=== PATIENT | female | born 1985 | race Caucasian/White ===

== ENCOUNTER 2019-12-15 10:22 | Inpatient (IN) ==
[2019-12-15] MEDS ORDERED: PENICILLIN G POTASSIUM 3 MU in DEXTROSE 5% 100 ML IV PRN (12:09)
[2019-12-15] MEDS ORDERED: OXYTOCIN 30 UNITS/500 ML BAG IV PRN ×2 (12:09→18:09)
[2019-12-15] MEDS: LACTATED RINGER'S 1,000 ML IV PRN ×2 (12:24→16:47)
--- NOTE | 2019-12-15 12:26 | History & Physical Report ---
Date of Service December 15, 2019 Assessment & Plan (1) Supervision of normal intrauterine in primigravida: (2) Advanced maternal age (AMA) in : (3) Normal labor: (4) Group beta Strep positive: admit, iv, labs. wants epidural for pain mgmt. begin pcn for gbs pos. arom when able. fhts categ 1. pt and partner deny ?s or concerns. History of Present Illness Chief Complaint: regular ctx. Primary Care Provider: Kenna Kim MD 34yo at 39+wks clementine presents to L&D with above cc. She had called noting q3min apart ctx for 30min and wanted to come in for labor check. She had been /-2 in office for her routine visit. On arrival in L&D was 2-/-2 per nurse. Advised to walk, fhts were categ 1 per nurse. No rom or vb. +FM PNC c/b 1. AMA, was getting nsts 2. GBS pos--trt in labor PNL rh pos, ri, gbs pos OBH: g1 GYNH: nl paps, no stds. Allergies Allergy/AdvReac Type Severity Reaction Status Date / Time No Known Allergies Allergy Verified 12/14/19 10:04 Home Medications Home Medications Medication Instructions Recorded Confirmed Type PNV cmb#95-ferrous fumarate-FA 1 tab PO DAILY 04/25/19 12/14/19 History [] diphenhydramine HCl PO 11/06/19 12/14/19 History ferrous sulfate PO 11/06/19 12/14/19 History pyridoxine (vitamin B6) PO 11/06/19 12/14/19 History acyclovir 800 mg tablet 800 mg PO 5XD 7 Days #35 tab 11/23/19 12/14/19 Rx Patient History Medical History (Updated 12/15/19 @ 12:26 by Marguerite Diamond MD, FACOG) H/O bladder infections Hx of migraines Varicella Surgical History (Updated 12/15/19 @ 12:22 by Marguerite Diamond MD, FACOG) [place] teeth removed Family History (Updated 11/23/19 @ 15:10 by Esther Porter MA) Brother Depression Sister Depression Mother Dyslipidemia Grandmother (Maternal) Dyslipidemia Hypertension Father Renal calculus, left Family/Other Breast cancer Other No pertinent family history Denies family history of Ovarian cancer Prostate cancer Myocardial infarction Colorectal cancer Social History (Updated 11/23/19 @ 15:11 by Esther Porter MA) Preferred Language: Sudanese Beliefs That Will Affect Care: None marital status: marital status details: Ritesh Burrows (36) [phone] Current Living Situation: Spouse Current Living Situation Comment: lives with spouse, 1 turtle current occupational status: employed current occupation: school psychologist- [employer] Other Information That Helps Us Care for You: No Feels Safe at Home: Yes Safety Concerns: Feels Safe At This Time Smoking Status: Never smoker Hx Alcohol Use: No Hx Substance Use: No Childhood Exposure to Second-Hand Smoke: No Dental Care, Regularly: Yes Physical Activity Frequency: 3-4 Times per Week Seatbelt Use: always Sunscreen Use: Yes Review of Systems per hpi Physical Exam Constitutional: WD/WN, vitals as above Respiratory: normal respiratory effort, lungs clear to auscultation Cardiovascular: Rate/Rhythm: regular rate and regular rhythm Gastrointestinal (Abdomen): Percussion/Palpation: abdomen soft (gravid); abdomen nontender soft gravid nt Musculoskeletal: no edema Neurologic: grossly normal Psychiatric: A+Ox3, euthymic affect Genitourinary: OB Exam Abdomen: + estimated weight (7-8#) Manual OB Exam: + cervical dilation (4), + cervical effacement 100% and + station 0 OB Exam Monitor Tracing: + external FHT monitor used (140), + external uterine monitor used (q2), + category I and + normal FHT variability Results & Data ([facility]) Vital Signs (Past 12 Hours) Vital Signs Temp Pulse Resp BP 12/15/19 10:25 98.6 F 54 L 22 111/70 Code Status & VTE Plan VTE Prophylaxis Plan VTE Prophylaxis will be ordered: No Coding Level of Care Code None Diagnoses Supervision of normal intrauterine in primigravida Z34.00 Advanced maternal age (AMA) in Normal labor O80; Z37.9 Group beta Strep positive B95.1
[2019-12-15] MEDS ORDERED: PENICILLIN G POTASSIUM 6 MU in DEXTROSE 5% 250 ML IV ONE (12:30)
[2019-12-15] MEDS ORDERED: ePHEDrine sulfate 50 MG/ML AMP ONE (12:31)
[2019-12-15] MEDS ORDERED: BUPIVACAINE 0.25% 30 ML VIAL ONE (12:31)
[2019-12-15 12:32] LABS: Hematocrit (blood only) 36.7 % (37-47); Hemoglobin 12.8 g/dL (12.0-16.0); Mean Corpuscular Hemoglobin 32.9 pg (25-34); Mean Corpuscular Volume 94.3 fL (80-100); Mean Platelet Volume 12.3 fL (7.4-10.4); Platelet Count 157 K/uL (130-400); RDW Coefficient of Variation 13.1 % (11.5-14.5); RDW Standard Deviation 45.3 fL (36.4-46.3); Red Blood Count 3.89 M/uL (4.2-5.4); White Blood Count 14.21 K/uL (4.8-10.8)
[2019-12-15] MEDS ORDERED: fentaNYL 2MCG/ML ROPIV 1.25MG/ML 100 ML BAG EPI ONE (12:32)
[2019-12-15] MEDS ORDERED: fentaNYL citrate 100 MCG/2 ML VIAL ONE (12:32)
[2019-12-15 12:47] LABS: Mean Corpuscular Hgb Conc 34.9 g/dL (32-36)
--- NOTE | 2019-12-15 13:19 | Anesthesiology Consultation ---
Date of Service December 15, 2019 Assessment & Plan (1) Encounter for pre-operative examination: History Height/Weight Height: 5 ft 5 in Weight: 66.678 kg Allergies Allergy/AdvReac Type Severity Reaction Status Date / Time No Known Allergies Allergy Verified 12/15/19 12:59 Medications Home Medications Medication Instructions Recorded Confirmed Last Taken ferrous sulfate [iron] 325 mg PO DAILY 12/15/19 12/15/19 Unknown vit-iron fum-folic ac 1 tab PO DAILY 12/15/19 12/15/19 Unknown [ Vitamin] Active Medications Generic Name Dose Route Start Last Admin Trade Name Freq PRN Reason Stop Dose Admin Lactated Ringer's 1,000 mls @ 125 mls/hr 12/15/19 12:09 12/15/19 13:09 Lr IV 12/17/19 12:08 0 mls/hr .Q8H PRN Infusion L&D Protocol Protocol Penicillin G Potassium 6 mu/ 262 mls @ 262 mls/hr 12/15/19 12:30 12/15/19 13: 09 Dextrose IV 12/15/19 13:29 262 mls/hr TODAY@1230 ONE Administration Past Medical History Medical History H/O bladder infections Hx of migraines Varicella Past Family History Family History Brother Depression Sister Depression Mother Dyslipidemia Grandmother (Maternal) Dyslipidemia Hypertension Father Renal calculus, left Family/Other Breast cancer Other No pertinent family history Denies family history of Ovarian cancer Prostate cancer Myocardial infarction Colorectal cancer Past Surgical History Surgical History [place] teeth removed Social History Smoking Status: Never smoker Hx Alcohol Use: No Hx Substance Use: No substance use type: does not use Physical Exam Vital Signs Last Vital Signs Temp 37.0 C 12/15/19 10:25 Pulse 54 L 12/15/19 10:25 Resp 22 12/15/19 10:25 BP 111/70 12/15/19 10:25 Testing Laboratory Results 12/15/19 12:22
[2019-12-15] MEDS ORDERED: ePHEDrine sulfate 50 MG/ML AMP IV PRN (14:00)
[2019-12-15] MEDS ORDERED: NALOXONE HCL 0.4 MG/1 ML VIAL/CARP IV PRN (14:00)
[2019-12-15] MEDS ORDERED: DiphenhydrAMINE HCL 50 MG/ML VIAL IV PRN (14:00)
[2019-12-15] MEDS ORDERED: ONDANSETRON INJ 2 MG/ML 2 ML VIAL IV PRN (14:00)
[2019-12-15] MEDS ORDERED: NALOXONE HCL 1 MG in SODIUM CHLORIDE 0.9% 1000ML 1,000 ML IV PRN (14:00)
[2019-12-15] MEDS ORDERED: fentaNYL 2MCG/ML ROPIV 1.25MG/ML 100 ML BAG EPI PRN (14:00)
[2019-12-15] MEDS ORDERED: ONDANSETRON INJ 2 MG/ML 2 ML VIAL ONE (14:03)
[2019-12-15] MEDS ORDERED: HYDROCORTISONE ACETATE 25 MG SUPP PR PRN (18:09)
[2019-12-15] MEDS ORDERED: BENZOCAINE 20% AER SPR 82.5 GM CAN EXT PRN (18:09)
[2019-12-15] MEDS ORDERED: SUPERCREAM 0.870% 15 GM JAR EXT PRN (18:09)
[2019-12-15] MEDS ORDERED: ACETAMINOPHEN 325 MG TAB PO PRN (18:09)
[2019-12-15] MEDS ORDERED: OXYCODONE/ACETAMINOPHEN 5mg/325mg TAB PO PRN (18:09)
--- NOTE | 2019-12-15 18:11 | Delivery Summary ---
Vaginal Delivery Summary Date of Service December 15, 2019 The patient dilated to complete and pushed to deliver a viable male Apgars 9 and 9 via over 2nd degree perineal laceration. Mouth and nose bulb suctioned at perineum. Shoulders and body delivered with ease. Infant was vigorous and crying at . Cord clamped at 30 seconds of life and to maternal abdomen where the cord was then doubly clamped and cut. Placenta delivered spontaneously and intact, three-vessel cord. Hemostasis achieved with dilute pitocin and uterine massage. Laceration repaired in usual fashion with 3- 0 vicryl after 1% local lidocaine anesthesia. Cervix and sulci intact. EBL 300 cc. Mother and baby stable recovery.
[2019-12-15] MEDS ORDERED: OXYTOCIN 20 UNITS in LACTATED RINGER'S 1,000 ML IV SCH (18:15)
[2019-12-15] MEDS ORDERED: DIPHTHERIA/TETANUS/PERTUSSIS 0.5 ML SYR/VIAL IM ONE (18:30)
--- NOTE | 2019-12-15 18:59 | Anesthesia Procedure Note ---
Date of Service December 15, 2019 Anesthesia Post Epidural Note Vital Signs Vital Signs: Temp Pulse Resp BP Pulse Ox 36.5 C 60 18 90/52 L 100 12/15/19 16:23 12/15/19 18:54 12/15/19 16:23 12/15/19 18:54 12/15/19 18:04 Notes Mental Status: alert / awake / arousable and participated in evaluation Patient Amnestic to Procedure: Yes Nausea / Vomiting: adequately controlled Pain: adequately controlled Airway Patency, RR, SpO2: stable & adequate BP & HR: stable & adequate Hydration State: stable & adequate Neuraxial Anesthesia: was administered and sensory block is resolving Anesthetic Complications: no major complications apparent and Pt Satisfied with anesthetic care Epidural: Removed without complications and With tip intact
[2019-12-15] MEDS: DOCUSATE SODIUM 100 MG CAP PO SCH (20:05)
[2019-12-15] MEDS: IBUPROFEN 600 MG TAB PO PRN (20:05)
[2019-12-16] MEDS: IBUPROFEN 600 MG TAB PO PRN ×4 (06:26→22:38)
[2019-12-16] MEDS: DOCUSATE SODIUM 100 MG CAP PO SCH ×2 (08:35→20:32)
--- NOTE | 2019-12-16 08:47 | Obstetrical Progress Note ---
Date of Service December 16, 2019 Assessment & Plan (1) examination following vaginal delivery: stable, routine care. , rubella immune Subjective Ambulation: ambulating normally Voiding: no voiding problems Diet Tolerance:: regular diet Lochia:: Small Feeding Type:: breast feeding bottom sore Physical Exam Constitutional WD/WN, vitals as above Respiratory normal respiratory effort, lungs clear to auscultation Cardiovascular Rate/Rhythm: regular rate and regular rhythm Gastrointestinal (Abdomen) Inspection/Auscultation: abdomen normal to inspection Percussion/Palpation: abdomen soft Fundus firm 2cm down Musculoskeletal nt calves no edema Neurologic grossly normal Psychiatric A+Ox3, euthymic affect Results & Data ([facility]) Vital Signs (Past 12 Hours) Vital Signs Temp Pulse Resp BP Pulse Ox 12/16/19 07:20 98.1 F 51 L 18 96/62 L 97 12/16/19 04:12 98.1 F 54 L 16 92/57 L 12/16/19 00:00 98.1 F 68 16 92/54 L
[2019-12-17] MEDS: IBUPROFEN 600 MG TAB PO PRN ×2 (05:00→15:06)
--- NOTE | 2019-12-17 06:09 | Obstetrical Progress Note ---
Date of Service <Juan Antonio Pearson MD - Last Filed: 12/17/19 07:03> December 17, 2019 Assessment & Plan <Juan Antonio Pearson MD - Last Filed: 12/17/19 07:03> (1) Normal labor: - Feels well today. Eating well, voiding well, ambulating well. - Pain well controlled with analgesics. - Routine care - After discharge will have 6 week followup. Subjective <Juan Antonio Pearson MD - Last Filed: 12/17/19 07:03> Emily is a 34 y/o female ; PPD #2 following spontaneous vaginal delivery at 39+ weeks; doing well this morning; light abdominal cramping & 5/10 pain well managed on analgesics; voiding well; tolerating meals overnight and able to ambulate some; some persistent lochia with some improvement this morning. Review of Systems Constitutional: denies fever, chills, sweat, headache Respiratory: denies shortness of breath, difficulty breathing Cardiac: denies chest pain, palpitations, chest pressure Breast: denies breast pain : denies dysuria Physical Exam <Juan Antonio Pearson MD - Last Filed: 12/17/19 07:03> General: Alert, oriented. No acute distress. Cardiac: Regular rate and rhythm, no murmurs/rubs/gallops. Respiratory: Clear to auscultation bilaterally a/p, no wheezes/rales/rhonchi. No increased work of breathing. Symmetrical chest rise. No respiratory distress. Abdomen: Soft, nontender, nondistended. Bowel sounds present. Uterus: Uterine fundus firm, palpable 2cm below umbilicus. Lower Extremities: No lower extremity edema or swelling. No deep calf pain. Ravi's negative bilaterally. Results & Data <Juan Antonio Pearson MD - Last Filed: 12/17/19 07:03> Vital Signs (Past 12 Hours) Vital Signs Temp Pulse Resp BP 12/17/19 00:00 37.0 C 70 18 96/56 L 12/16/19 19:30 36.7 C 71 18 97/61 L <Marguerite Diamond MD, FACOG - Last Filed: 12/17/19 07:45> Co-Signing Physician Notes Resident Physician Supervision Note: I was present with Dr. Cole during the history and exam. I discussed the case with the resident and agree with the findings and plan as documented in the note. Any exceptions or clarifications are listed here: doing well pp, ready to go home, eating voiding, ambulating, . rhpos, ri. ff 2 down nt. plan 6wk pp check, instructions reviewed. Documented By: Marguerite Diamond MD, FACOG Resident Activity Tracking <Juan Antonio Pearson MD - Last Filed: 12/17/19 07:03> Resident Involvement: Resident Care Provided Care Provided: OB Delivery
[2019-12-17] MEDS: DOCUSATE SODIUM 100 MG CAP PO SCH (07:47)
== END 2019-12-17 20:23 | disposition home or self-care (01) | DRG 807 ==
LOC: OPB 10:22 → 4S1 10:23 → 4S2 21:14